=== PATIENT | male | born 1995 | race Caucasian/White ===

== ENCOUNTER 2020-01-23 14:25 | Emergency (ER) | payer OTHER ==
[~2020-01-23] VITALS: Ht 185.4 cm; Wt 83.9 kg
[2020-01-23] MEDS ORDERED: SUPER THERAVIT1 EACH PO (14:41)
[2020-01-23] MEDS ORDERED: PROBIOTIC1 EAC7 PO (14:41)
[2020-01-23] MEDS ORDERED: MEDROLDOSEPACK PO (15:14)
[2020-01-23] MEDS ORDERED: HYDROCORTISONE3011 TP (15:14)
[2020-01-23 15:21] VITALS: BP 123/85
== END 2020-01-23 15:22 | disposition home or self-care (01) ==
LOC: M.ERS 14:25
DX: L23.7 Allergic contact dermatitis due to plants, except food (principal); T50.991A Poisoning by other drugs, medicaments and biological substances, accidental (unintentional), initial encounter; L27.0 Generalized skin eruption due to drugs and medicaments taken internally; Y92.89 Other specified places as the place of occurrence of the external cause